=== PATIENT | male | born 1985 | race Caucasian/White ===

== ENCOUNTER 2025-03-23 11:57 | Emergency (ER) | payer OTHER ==
[~2025-03-23] VITALS: Ht 185.4 cm; Wt 76.2 kg
[2025-03-23] MEDS ORDERED: IBUP-1955 PO (12:58)
[2025-03-23] MEDS ORDERED: KETOROLAC TROMETHAMINE 15 MG/ML VIAL ONE (13:01)
[2025-03-23] MEDS: KETOROLAC TROMETHAMINE 15 MG/ML VIAL IM ONE (13:06)
[2025-03-23 13:09] VITALS: BP 125/87; TEMP 98.6; O2SAT 98
== END 2025-03-23 13:09 | disposition home or self-care (01) ==
LOC: ER 12:03
DX: S42.001A Fracture of unspecified part of right clavicle, initial encounter for closed fracture (principal); Z02.89 Encounter for other administrative examinations; X58.XXXA Exposure to other specified factors, initial encounter; Y93.89 Activity, other specified; Y92.89 Other specified places as the place of occurrence of the external cause; Y99.8 Other external cause status
CPT/HCPCS: 29105; 96372; 99283; J1885